=== PATIENT | male | born 1945 | race Caucasian/White ===

== ENCOUNTER 2023-01-21 12:51 | Emergency (ER) | payer OTHER, MEDICAID ==
[~2023-01-21] VITALS: Ht 162.6 cm; Wt 72.6 kg
[2023-01-21 13:08] VITALS: BP_SYST 121; PULSE 102; RESP 20; TEMP 99.5; O2SAT 97
[2023-01-21] MEDS ORDERED: NACL 0.9% 1,000 ML IV ONE (13:15)
[2023-01-21 13:34] LABS: BILIRUBIN,URINE NEGATIVE (NEGATIVE); CLARITY/URINE CLEAR (CLEAR); COLOR,URINE YELLOW (YELLOW); GLUCOSE,URINE NEGATIVE (NEGATIVE); KETONES,URINE TRACE (NEGATIVE); LEUKOCYTE ESTERASE ,URINE TRACE (NEGATIVE); NITRITE, URINE NEGATIVE (NEGATIVE); PROTEIN URINE 1+ (NEGATIVE)
[2023-01-21 13:39] LABS: BLOOD, URINE TRACE (NEGATIVE); UROBILINOGEN,URINE >=8 (0.2-1.0)
[2023-01-21 13:42] LABS: BACTERIA,URINE FEW /HPF (None Seen); MUCUS,URINE 1+ /LPF (None Seen)
[2023-01-21 13:55] LABS: BASOPHILS % (AUTO) 0.1 % (0.0-2.0); HEMATOCRIT 30.8 % (36-54); HEMOGLOBIN 10.8 g/dL (14.0-18.0); LYMPHOCYTES # (AUTO) 1.3 K/uL (1.0-5.5); MEAN CORPUSCULAR HEMOGLOBIN 33 pg (27-31); MEAN CORPUSCULAR HGB CONC 35 % (32-36); MEAN CORPUSCULAR VOLUME 93 fL (79.0-98.0); MONOCYTES # (AUTO) 0.8 K/uL (0.0-1.0); NEUTROPHILS # (AUTO) 9.7 K/uL (1.8-7.7); NEUTROPHILS % (AUTO) 81.9 % (40.0-70.0); PLATELET COUNT (AUTO) 266 K/uL (130-430); RED CELL DISTRIBUTION WIDTH 16.6 % (9.0-15.0); WHITE BLOOD COUNT (AUTO) 11.9 K/uL (4.8-10.8)
[2023-01-21 14:09] LABS: ALANINE AMINOTRANSFERASE 37 U/L (12-78); ANION GAP 10 (5-15); ASPARTATE AMINOTRANSFERASE 18 U/L (10-37); CALCIUM 8.7 mg/dL (8.4-11.0); CARBON DIOXIDE 25 mmol/L (23-29); CREATININE 0.94 mg/dL (0.55-1.30); GLUCOSE 118 mg/dL (74-106); LIPASE 44 U/L (16-77); POTASSIUM 3.9 mmol/L (3.5-5.1); TOTAL BILIRUBIN 0.9 mg/dL (0.0-1.0); TOTAL PROTEIN, SERUM 7.3 g/dL (6.4-8.3); UREA NITROGEN, BLOOD 7 mg/dL (8-21)
[2023-01-21 14:10] LABS: CHLORIDE 84 mmol/L (98-107); SODIUM SERUM 119 mmol/L (136-145)
[2023-01-21] MEDS ORDERED: NACL 0.9% 1,000 ML IV SCH (15:45)
[2023-01-21] MEDS ORDERED: TAMS-11 PO (15:52)
[2023-01-21] MEDS ORDERED: ATOR-1 PO (15:52)
[2023-01-21] MEDS ORDERED: CHOL500051 PO (15:52)
[2023-01-21 21:59] VITALS: BP_SYST 151; PULSE 93; RESP 20; TEMP 98.8; O2SAT 95
== END 2023-01-21 21:59 | disposition short-term general hospital (02) ==
LOC: SED 12:51
DX: R10.10 Upper abdominal pain, unspecified (principal); R53.1 Weakness; Z79.899 Other long term (current) drug therapy
CPT/HCPCS: 99285; 74176; 96360; 96361; 80053; 81001; 83690; 85025; 87086; 36415; 76376; 81000; 81015; J7030